=== PATIENT | male | born 2000 | race African-American/Black ===

== ENCOUNTER 2025-05-30 23:00 | Observation (INO) | payer OTHER ==
[~2025-05-30] VITALS: Ht 182.9 cm; Wt 78.2 kg
[2025-05-31 00:27] LABS: BASO # 0.0 10^3/uL (0.0-0.2); BASO % 0.2 % (0.0-1.0); EOS # 0.0 10^3/uL (0.0-0.5); EOS % 0.1 % (0.0-3.0); LYMPH # 1.9 10^3/uL (1.5-5.0); LYMPH % 15.5 % (24.0-44.0); MONO # 1.1 10^3/uL (0.0-0.8); MONO % 8.7 % (2.0-8.0); NEUTROPHILS # 9.2 10^3/uL (1.5-8.5); NEUTROPHILS % 75.0 % (36.0-66.0); PLATELET COUNT, AUTOMATED 287 10^3/uL (150-450)
[2025-05-31 00:45] LABS: ALT/SGPT 13 U/L (7.0-40); AST/SGOT 17 U/L (<34); CALCIUM LEVEL 10.0 MG/DL (8.5-10.1); CARBON DIOXIDE LEVEL 25 MMOL/L (20-31); CHLORIDE LEVEL 100 MMOL/L (98-107); CREATININE FOR GFR 0.89 MG/DL (0.70-1.30); GLOMERULAR FILTRATION RATE > 90.0 (>60); POTASSIUM SERUM 3.6 MMOL/L (3.5-5.1); SODIUM LEVEL 137 MMOL/L (136-145)
[2025-05-31 03:38] LABS: APPEARANCE, URINE CLEAR (CLEAR); BACTERIA, URINE AUTO NEGATIVE (NEGATIVE); BILIRUBIN, URINE AUTO NEGATIVE (NEGATIVE); BLOOD, URINE BLOOD NEGATIVE (NEGATIVE); GLUCOSE, URINE (UA) AUTO NEGATIVE (NEGATIVE); KETONE, URINE AUTO 1+ mg/dL (NEGATIVE); LEUKOCYTE ESTERASE, URINE AUTO NEGATIVE (NEGATIVE); MUCUS, URINE SMALL (NEGATIVE); NITRITE, URINE AUTO NEGATIVE (NEGATIVE); PROTEIN, URINE AUTO 1+ mg/dL (NEGATIVE); RBC, URINE AUTO 2 /HPF (0-3); SPECIFIC GRAVITY URINE AUTO 1.031 (1.002-1.035); SQUAMOUS EPITHELIAL CELL UR AU 0 /HPF (0-6); UROBILINOGEN, URINE AUTO 2.0 mg/dL (0.0-2.0); WBC, URINE AUTO 1 /HPF (0-3)
[2025-05-31] MEDS ORDERED: ACET-907 PO (03:57)
[2025-05-31] MEDS ORDERED: ISOVUE-370 76% 100 ML VIAL As Ordered ONE (04:17)
[2025-05-31] MEDS ORDERED: MORPHINE 4 MG/ML 1 ML VIAL IV PRN ×2 (05:00→06:00)
[2025-05-31] MEDS: ONDANSETRON 4MG/2ML VIAL IV ONE (05:08)
[2025-05-31] MEDS: NS (Normal Saline) 0.9% 1,000 ML IV ONE (05:08)
[2025-05-31] MEDS: MORPHINE 2 MG/ML 1 ML VIAL IV PRN (05:09)
[2025-05-31] MEDS ORDERED: ONDANSETRON 4MG/2ML VIAL IV PRN (05:55)
[2025-05-31] MEDS ORDERED: MORPHINE 2 MG/ML 1 ML VIAL IV PRN (06:00)
[2025-05-31] MEDS: LR 1,000 ML IV SCH (06:40)
[2025-05-31] MEDS: KETOROLAC 30 MG/ML 1 ML VIAL IV PRN (06:41)
[2025-05-31 06:50] LABS: TRIGLYCERIDES LEVEL 98 MG/DL (<150)
[2025-05-31] MEDS ORDERED: HOME MED LIST COMPLETE! XX SCH (07:50)
[2025-05-31 08:18] VITALS: BP 136/84; TEMP 97.5; O2SAT 98
[2025-05-31 08:55] LABS: PLATELET COUNT, AUTOMATED 231 10^3/uL (150-450)
[2025-05-31] MEDS: ENOXAPARIN 40 MG/0.4 ML SYRINGE (J1650 PER 10MG) SC SCH (09:14)
[2025-05-31 09:32] LABS: ALT/SGPT 11 U/L (7.0-40); AST/SGOT 16 U/L (<34); CALCIUM LEVEL 9.1 MG/DL (8.5-10.1); CARBON DIOXIDE LEVEL 27 MMOL/L (20-31); CHLORIDE LEVEL 102 MMOL/L (98-107); CREATININE FOR GFR 0.83 MG/DL (0.70-1.30); GLOMERULAR FILTRATION RATE > 90.0 (>60); POTASSIUM SERUM 4.0 MMOL/L (3.5-5.1); SODIUM LEVEL 139 MMOL/L (136-145)
[2025-05-31] MEDS: LR 1,000 ML IV ONE (11:25)
[2025-05-31 12:00] VITALS: BP 122/75; TEMP 98.3; O2SAT 99
[2025-05-31 19:39] VITALS: BP 120/76; TEMP 98.4; O2SAT 100
[2025-06-01 04:19] VITALS: BP 130/73; TEMP 100.2; O2SAT 99
[2025-06-01 07:21] LABS: PLATELET COUNT, AUTOMATED 214 10^3/uL (150-450)
[2025-06-01 07:50] LABS: ALT/SGPT 10 U/L (7.0-40); AST/SGOT 15 U/L (<34); CALCIUM LEVEL 8.8 MG/DL (8.5-10.1); CARBON DIOXIDE LEVEL 27 MMOL/L (20-31); CHLORIDE LEVEL 105 MMOL/L (98-107); CREATININE FOR GFR 0.87 MG/DL (0.70-1.30); GLOMERULAR FILTRATION RATE > 90.0 (>60); POTASSIUM SERUM 3.9 MMOL/L (3.5-5.1); SODIUM LEVEL 141 MMOL/L (136-145)
[2025-06-01 12:00] VITALS: BP 118/80; TEMP 98.5; O2SAT 100
[2025-06-01] MEDS ORDERED: ACET-683 PO (15:13)
== END 2025-06-01 15:40 | disposition home or self-care (01) ==
LOC: EDBD 23:00 → M ED 23:00 → M ED INP 23:01 → M MS4PR 05-31 08:11
PROVIDERS: ADMIT Student in an Organized Health Care Education/Training Program; ATTEND Student in an Organized Health Care Education/Training Program
DX: K85.20 Alcohol induced acute pancreatitis without necrosis or infection (principal); R17 Unspecified jaundice; D70.9 Neutropenia, unspecified; D64.9 Anemia, unspecified; K59.00 Constipation, unspecified; Z72.89 Other problems related to lifestyle
CPT/HCPCS: 36415; 74160; 76705; 80048; 80053; 80076; 81001; 83690; 84478; 85025; 85027; 96361; 96374; 96375; 96376; 99285; J1650; J1885; J2405; Q9967